=== PATIENT | female | born 1960 | race Caucasian/White ===

== ENCOUNTER 2016-11-10 02:56 | Emergency (ER) | payer MEDICAID, OTHER ==
[2016-11-10 03:04] VITALS: BP 181/103; PULSE 77; RESP 18; TEMP 98.3; O2SAT 98
--- NOTE | 2016-11-10 03:31 | ED PDOC ---
HPI: Headache <Dagoberto Noriega - Last Filed: 11/10/16 03:57> Chief Complaint (Provider): Headache History Per: Patient Onset/Duration Of Symptoms: Hrs Pain Scale Rating Of: 5 Quality: Sharp Associated Symptoms: Nausea, Vomiting Additional Complaint(s): 56 yo , f, PMhx/o HTN, Hypothyroidism s/p Thyroidectomy for thyroid cancer 14 years ago, vertigo presents to ED c/o frontal headache started 1 hours ago after having an argument with her daughter, associated with nausea, 3 non bloody vomiting, dizziness and palpitation. Headache is 5/10 in intensity, sharp and her blood pressure at home was 175/116 mmhg. She denies chest pain, SOB, cough, abdominal pain, syncope, blurry vision, confusion. <Toby Rosales - Last Filed: 11/10/16 05:32> Time Seen by Provider: 11/10/16 03:05 Chief Complaint (Nursing): Headache Supervising Attending Note - Attestation: I have personally seen and examined this patient.: Yes I have fully participated in the care of the patient.: Yes I have reviewed all pertinent clinical information: Yes <Dagoberto Noriega - Last Filed: 11/10/16 03:57> Past Medical History Vital Signs: Last Vital Signs Temp 98.3 F 11/10/16 03:00 Pulse 77 11/10/16 03:00 Resp 18 11/10/16 03:00 BP 181/103 H 11/10/16 03:00 Pulse Ox 98 11/10/16 03:56 <Dagoberto Noriega - Last Filed: 11/10/16 03:57> Vital Signs: Last Vital Signs Temp 98.3 F 11/10/16 03:00 Pulse 77 11/10/16 03:00 Resp 18 11/10/16 03:00 BP 181/103 H 11/10/16 03:00 Pulse Ox 98 11/10/16 03:00 - Medical History PMH: HTN, Hypothyroidism - Surgical History Other surgeries: -Thyroidectomy secondary to thyroid cancer. -Hysterectomy. - cystocele - Family History Family History: States: No Known Family Hx - Social History Current smoker - smoking cessation education provided: No Ex-Smoker (has not smoked in the last 12 months): No Alcohol: None Drugs: Denies <Toby Rosales - Last Filed: 11/10/16 05:32> - Allergies Allergies/Adverse Reactions: Allergies Allergy/AdvReac Type Severity Reaction Status Date / Time No Known Allergies Allergy Unverified 07/14/13 10:14 Review of Systems Gastrointestinal: Positive for: Nausea, Vomiting Neurological: Positive for: Headache <Donnie Rosaleslisamercy - Last Filed: 11/10/16 05:32> Physical Exam - Physical Exam Appears: Positive for: No Acute Distress Head Exam: Positive for: ATRAUMATIC, NORMOCEPHALIC Skin: Positive for: Normal Color Eye Exam: Positive for: Normal appearance. Negative for: Nystagmus Neck: Positive for: Normal Cardiovascular/Chest: Positive for: Regular Rate, Rhythm. Negative for: Murmur Gastrointestinal/Abdominal: Positive for: Bowel Sounds, Soft. Negative for: Tenderness, Rebound Neurologic/Psych: Positive for: Alert, Oriented <ConnieDonnielisamercy - Last Filed: 11/10/16 05:32> - ECG O2 Sat by Pulse Oximetry: 98 <ConnieBritanymercy - Last Filed: 11/10/16 05:32> Medical Decision Making Medical Decision Makin:15 am 56 yo , f, PMhx/o HTN, Hypothyroidism, vertigo presents to ED c/o frontal headache started 1 hours ago after and argument associated with high blood pressure 175/116. Patient comfortable, BP in ER 131/108. BP repeated 15 min later 154/96 mmhg Impression Headache secondary to hypertension and anxiety. Plan -EKG stat -Ct Head -Tylenol 650 mg PO -Zofran 4m PO 4:00 am -CT head negative, EKG normal <ConnieDonnielisamercy - Last Filed: 11/10/16 05:32> Disposition <Dagoberto Noriega - Last Filed: 11/10/16 03:57> - Patient ED Disposition Is Patient to be Admitted: No - Disposition Disposition Time: 04:25 <ConnieToby - Last Filed: 11/10/16 05:32> - Clinical Impression Clinical Impression: Headache, Stress at home - Disposition Referrals: Brennen Jackson MD [Staff Provider] - Condition: IMPROVED Instructions: Stress (ED), Hypertension (GEN), General Headache (ED) Print Language: [place]
--- NOTE | 2016-11-10 03:58 | CT ---
EXAM: CT Head Without Intravenous Contrast CLINICAL HISTORY: 56 years old, female; Pain; Headache; Headache not specified; Additional info: PARRISH, vomiting TECHNIQUE: Axial computed tomography images of the head/brain without intravenous contrast. This CT exam was performed using one or more of the following dose reduction techniques: automated exposure control, adjustment of the mA and/or kV according to patient size, and/or use of iterative reconstruction technique. Coronal and sagittal reformatted images were created and reviewed. COMPARISON: No relevant prior studies available. FINDINGS: Brain: No intracranial hemorrhage. No mass. No definite edema. Ventricles: No hydrocephalus. Bones/joints: No acute fracture. Soft tissues: Unremarkable. Sinuses: No acute sinusitis. Mastoid air cells: No mastoid effusion. Orbits: Unremarkable as visualized. IMPRESSION: 1. No acute intracranial abnormality. 2. Incidental/non-acute findings are described above.
--- NOTE | 2016-11-10 09:31 | CARD ---
APPROVED REPORT EKG Measurement Heart [id number] CO [id number] <Conclusion> Normal sinus rhythm Normal ECG
== END 2016-11-10 04:25 | disposition home or self-care (01) ==
LOC: H.ER 02:56
DX: I10 Essential (primary) hypertension (principal); R51 Headache; E03.9 Hypothyroidism, unspecified; Z85.850 Personal history of malignant neoplasm of thyroid; Z87.891 Personal history of nicotine dependence; R11.10 Vomiting, unspecified